=== PATIENT | female | born 1990 | race African-American/Black ===

== ENCOUNTER 2016-12-02 12:08 | Observation (INO) | payer SELFPAY ==
[~2016-12-02] VITALS: Ht 160 cm; Wt 65.9 kg
[2016-12-02 12:45] VITALS: BP 124/67
[2016-12-02 14:15] LABS: APPEARANCE,URINE CLOUDY (CLEAR); GLUCOSE, URINE (UA) NEGATIVE (NEGATIVE); KETONES,URINE 15 mg/dL (NEGATIVE); LEUKOCYTE ESTERASE ,URINE LARGE (NEGATIVE); OCCULT BLOOD,URINE NEGATIVE (NEGATIVE); PH,URINE 6.5 (5.0-8.0); PROTEIN,URINE POS 1+ (NEGATIVE)
[2016-12-02 14:29] LABS: SQUAMOUS EPITHELIAL CELL,UR Moderate /LPF (None Seen)
[2016-12-02] MEDS ORDERED: RINGERS SOLUTION,LACTATED 1,000 ML IV SCH (15:00)
[2016-12-02] MEDS ORDERED: RINGERS SOLUTION,LACTATED 1,000 ML IV ONE (15:00)
== END 2016-12-02 18:00 | disposition home or self-care (01) ==
LOC: EMS 12:10 → 4S 12:55
PROVIDERS: ADMIT Obstetrics & Gynecology; ATTEND Obstetrics & Gynecology
DX: O26.893 Other specified pregnancy related conditions, third trimester (principal); R10.2 Pelvic and perineal pain; O99.323 Drug use complicating pregnancy, third trimester; F12.90 Cannabis use, unspecified, uncomplicated; Z3A.34 34 weeks gestation of pregnancy
CPT/HCPCS: 59025; 76811; 80307 ×8; 81001; 87086; 96360; 99285; G0378; J7120; 96361

== ENCOUNTER 2016-12-10 20:56 | Inpatient (IN) | payer MEDICAID ==
[~2016-12-10] VITALS: Ht 165.1 cm; Wt 65.8 kg
[2016-12-10 20:48] VITALS: BP 146/78
[2016-12-10] MEDS ORDERED: RINGERS SOLUTION,LACTATED 1,000 ML IV SCH (20:57)
[2016-12-10] MEDS ORDERED: RINGERS SOLUTION,LACTATED 1,000 ML IV PRN (20:57)
[2016-12-10] MEDS ORDERED: OXYTOCIN 30 UNITS/LACT RINGERS 500 ML IV ONE (20:57)
[2016-12-10] MEDS ORDERED: METOCLOPRAMIDE HCL 5 MG/ML 2 ML VIAL IVP PRN (21:00)
[2016-12-10] MEDS ORDERED: CITRIC ACID/SODIUM CITRATE 30 ML SOLUTION UDCUP PO PRN (21:00)
[2016-12-10] MEDS ORDERED: FentaNYL CITRATE-PF 100 MCG/2 ML VIAL IVP PRN (21:00)
[2016-12-10] MEDS ORDERED: AMPICILLIN SODIUM 2 GM/NS 100 ML IV ONE (21:00)
[2016-12-10 21:51] LABS: BASOPHILS % (AUTO) 0.3 % (0.0-2.0); EOSINOPHILS % (AUTO) 0.4 % (1.0-6.0); HEMOGLOBIN 7.8 g/dL (12.0-16.0); LYMPHOCYTES # (AUTO) 1.9 K/uL (1.0-4.8); LYMPHOCYTES % (AUTO) 18.5 % (22.0-44.0); MEAN CORPUSCULAR HEMOGLOBIN 19.8 pg (26.0-34.0); MEAN CORPUSCULAR HGB CONC 29.9 G/dL (31.0-37.0); MEAN CORPUSCULAR VOLUME 66 fL (80-100); MONOCYTES # (AUTO) 0.6 K/uL (0.1-1.0); MONOCYTES % (AUTO) 5.9 % (2.0-9.0); NEUTROPHILS # (AUTO) 7.6 K/uL (1.8-7.7); NEUTROPHILS % (AUTO) 74.9 % (40.0-70.0); RED BLOOD CELL COUNT(AUTO) 3.92 MIL/uL (4.00-5.20); RED CELL DISTRIBUTION WIDTH 21.4 % (11.5-14.5); WHITE BLOOD COUNT (AUTO) 10.2 K/uL (4.5-11.0)
[2016-12-10 22:00] LABS: ANION GAP 12 mmol/L (8-16); CALCIUM, TOTAL 8.3 mg/dL (8.8-10.5); CARBON DIOXIDE 23 mmol/L (22-29); CHLORIDE 102 mmol/L (98-107); CREATININE 0.87 mg/dL (0.60-1.30); GLOMERULAR FILTR. RATE CALC > 60 mL/min (>60); POTASSIUM 3.1 mmol/L (3.5-5.1); SODIUM SERUM 137 mmol/L (136-145); UREA NITROGEN, BLOOD 9 mg/dL (7-18)
[2016-12-10 22:05] LABS: ALANINE AMINOTRANSFERASE 35 U/L (12-78); ALBUMIN 2.6 g/dL (3.4-5.0); ASPARTATE AMINOTRANSFERASE 39 U/L (15-37); BILIRUBIN,TOTAL 0.6 mg/dL (0.1-1.0); TOTAL PROTEIN, SERUM 6.7 g/dL (6.4-8.2)
[2016-12-10 22:19] LABS: RBC MORPHOLOGY COMMENT ABNORMAL RBC MORPH
[2016-12-10 22:36] LABS: RAPID PLASMA REAGIN NONREACTIVE (NONREACTIVE); RUBELLA SCREEN (IGG) IMMUNE (IMMUNE)
[2016-12-10] MEDS ORDERED: BENZOCAINE 20%/MENTHOL 56 GM SPRAY CANISTER TP PRN (23:30)
[2016-12-10] MEDS ORDERED: GLYCERIN/WITCH HAZEL LEAF 40 PADS JAR TP PRN (23:30)
[2016-12-10] MEDS ORDERED: LANOLIN 7 GM OINTMENT TP PRN (23:30)
[2016-12-11] MEDS: GuaiFENesin/D-METHORPHAN [SUGAR-FREE] 200-20MG/10 ML SYRUP UDCUP PO PRN ×4 (00:09→16:26)
[2016-12-11] MEDS ORDERED: AMPICILLIN SODIUM 1 GM/NS 50 ML IV SCH (01:00)
[2016-12-11] MEDS: IBUPROFEN 600 MG TABLET PO PRN ×2 (05:07→12:29)
[2016-12-11] MEDS ORDERED: OXYGEN THERAPY IH SCH (08:00)
[2016-12-11 08:40] LABS: BASOPHILS % (AUTO) 1.3 % (0.0-2.0); EOSINOPHILS % (AUTO) 0.4 % (1.0-6.0); HEMOGLOBIN 7.6 g/dL (12.0-16.0); LYMPHOCYTES # (AUTO) 1.6 K/uL (1.0-4.8); LYMPHOCYTES % (AUTO) 12.3 % (22.0-44.0); MEAN CORPUSCULAR HEMOGLOBIN 20.1 pg (26.0-34.0); MEAN CORPUSCULAR HGB CONC 30.6 G/dL (31.0-37.0); MEAN CORPUSCULAR VOLUME 66 fL (80-100); MONOCYTES # (AUTO) 0.6 K/uL (0.1-1.0); MONOCYTES % (AUTO) 4.7 % (2.0-9.0); NEUTROPHILS # (AUTO) 10.4 K/uL (1.8-7.7); NEUTROPHILS % (AUTO) 81.3 % (40.0-70.0); RED CELL DISTRIBUTION WIDTH 21.2 % (11.5-14.5); WHITE BLOOD COUNT (AUTO) 12.8 K/uL (4.5-11.0)
[2016-12-11] MEDS: MAGNESIUM HYDROXIDE SUSPENSION 30 ML UDCUP PO SCH ×2 (09:32→21:00)
[2016-12-11] MEDS: SENNA/DOCUSATE SODIUM 187-50 MG TABLET PO SCH ×2 (09:32→21:00)
[2016-12-11] MEDS ORDERED: SOD FERRIC GLUC COMPLX/SUCROSE 125 MG in SODIUM CHLORIDE 0.9% 100 ML IV ONE (21:00)
[2016-12-11] MEDS ORDERED: SODIUM CHLORIDE 0.9% 1,000 ML IV ONE (21:08)
[2016-12-12] MEDS: IBUPROFEN 600 MG TABLET PO PRN (15:48)
[2016-12-13] MEDS: SENNA/DOCUSATE SODIUM 187-50 MG TABLET PO SCH (08:13)
[2016-12-13] MEDS: MAGNESIUM HYDROXIDE SUSPENSION 30 ML UDCUP PO SCH (08:13)
[2016-12-13] MEDS: IBUPROFEN 600 MG TABLET PO PRN (08:14)
[2016-12-13] MEDS ORDERED: FERR-89 PO (11:40)
[2016-12-13] MEDS ORDERED: IBUP-2070 PO (11:40)
[2016-12-13] MEDS ORDERED: DSS100 PO (11:41)
== END 2016-12-13 15:50 | disposition home or self-care (01) | DRG 560 ==
LOC: 4S 20:56 → PREOBSVTOIN 01-02 21:12
PROVIDERS: ADMIT Obstetrics & Gynecology; ATTEND Obstetrics & Gynecology
PROC: 10D07Z6 Extraction of Products of Conception, Vacuum, Via Natural or Artificial Opening (ICD-10-PCS; principal; 2016-12-10)
PROC: 0UQMXZZ Repair Vulva, External Approach (ICD-10-PCS; 2016-12-10)
PROC: 0W8NXZZ Division of Female Perineum, External Approach (ICD-10-PCS; 2016-12-10)
DX: O60.14X0 Preterm labor third trimester with preterm delivery third trimester, not applicable or unspecified (principal); O77.0 Labor and delivery complicated by meconium in amniotic fluid; O71.82 Other specified trauma to perineum and vulva; O66.5 Attempted application of vacuum extractor and forceps; Z37.0 Single live birth; Z3A.35 35 weeks gestation of pregnancy
CPT/HCPCS: 71020; 80307; 80324; 80349; 86592; 86762; 86850; 86900; 86901; 87340; 88307; J2590; J2916; J7030; J7050; J7120

== ENCOUNTER 2017-01-26 21:20 | Emergency (ER) | payer MEDICAID, OTHER ==
[~2017-01-26] VITALS: Ht 167.6 cm; Wt 70.9 kg
[~2017-01-26 21:20] MED LIST: DSS100 PO; FERR-89 PO; IBUP-2070 PO
[2017-01-26] MEDS ORDERED: TraMADol HCL 50 MG TABLET PO ONE (22:15)
[2017-01-26 22:24] VITALS: BP 139/77
== END 2017-01-26 22:24 | disposition home or self-care (01) ==
LOC: EMS 21:23
DX: M54.5 Low back pain (principal); B86 Scabies; L29.9 Pruritus, unspecified; F17.210 Nicotine dependence, cigarettes, uncomplicated; F19.90 Other psychoactive substance use, unspecified, uncomplicated
CPT/HCPCS: 99283

== ENCOUNTER 2017-04-27 09:38 | Inpatient (IN) | payer MEDICAID, OTHER ==
[~2017-04-27] VITALS: Ht 160 cm; Wt 56.9 kg
[2017-04-27 10:23] LABS: BASOPHILS # (AUTO) 0.03 K/uL (0.00-0.20); BASOPHILS % (AUTO) 0.5 % (0.0-2.0); EOSINOPHILS # (AUTO) 0.09 K/uL (0.00-0.70); EOSINOPHILS % (AUTO) 1.57 % (1.0-6.0); HEMATOCRIT 33.3 % (36-46); HEMOGLOBIN 10.3 g/dL (12.0-16.0); LYMPHOCYTES # (AUTO) 1.8 K/uL (1.0-4.8); LYMPHOCYTES % (AUTO) 30.7 % (22.0-44.0); MEAN CORPUSCULAR HEMOGLOBIN 23.2 pg (26.0-34.0); MEAN CORPUSCULAR HGB CONC 30.9 G/dL (31.0-37.0); MEAN CORPUSCULAR VOLUME 75 fL (80-100); MONOCYTES # (AUTO) 0.5 K/uL (0.1-1.0); MONOCYTES % (AUTO) 8.6 % (2.0-9.0); NEUTROPHILS # (AUTO) 3.4 K/uL (1.8-7.7); NEUTROPHILS % (AUTO) 58.7 % (40.0-70.0); PLATELET COUNT (AUTO) 247 K/uL (150-450); RED BLOOD CELL COUNT(AUTO) 4.43 MIL/uL (4.00-5.20)
[2017-04-27 10:28] LABS: AMPHET/METH SCREEN,URINE POSITIVE (NEGATIVE); BARBITURATE SCREEN, URINE NEGATIVE (NEGATIVE); BENZODIAZEPINES SCREEN,URINE NEGATIVE (NEGATIVE); CANNABINOID SCREEN,URINE POSITIVE (NEGATIVE); COCAINE SCREEN,URINE NEGATIVE (NEGATIVE); METHADONE SCREEN, URINE NEGATIVE (NEGATIVE); OPIATE SCREEN,URINE NEGATIVE (NEGATIVE)
[2017-04-27 10:29] LABS: PHENCYCLIDINE SCREEN,URINE NEGATIVE (NEGATIVE)
[2017-04-27 10:32] LABS: ANION GAP 9 mmol/L (8-16); CALCIUM, TOTAL 9.1 mg/dL (8.8-10.5); CARBON DIOXIDE 28 mmol/L (22-29); CHLORIDE 104 mmol/L (98-107); CREATININE 1.06 mg/dL (0.60-1.30); GLOMERULAR FILTR. RATE CALC > 60 mL/min (>60); GLUCOSE,RANDOM 91 mg/dL (70-110); POTASSIUM 3.9 mmol/L (3.5-5.1); SODIUM SERUM 141 mmol/L (136-145); UREA NITROGEN, BLOOD 10 mg/dL (7-18)
[2017-04-27 10:38] LABS: ALANINE AMINOTRANSFERASE 30 U/L (12-78); ALBUMIN 3.9 g/dL (3.4-5.0); ALKALINE PHOSPHATASE 79 U/L (46-116); ASPARTATE AMINOTRANSFERASE 40 U/L (15-37); BILIRUBIN,TOTAL 0.7 mg/dL (0.1-1.0)
[2017-04-27] MEDS ORDERED: HALOPERIDOL 5 MG TABLET PO PRN (12:00)
[2017-04-27] MEDS ORDERED: LORazepam 2 MG TABLET PO PRN (12:00)
[2017-04-27] MEDS ORDERED: ZOLPIDEM TARTRATE 10 MG TABLET PO PRN (12:00)
[2017-04-27 12:27] LABS: APPEARANCE,URINE CLOUDY (CLEAR); BILIRUBIN,URINE NEGATIVE (NEGATIVE); GLUCOSE, URINE (UA) NEGATIVE (NEGATIVE); KETONES,URINE NEGATIVE (NEGATIVE); LEUKOCYTE ESTERASE ,URINE MODERATE (NEGATIVE); NITRATE,URINE NEGATIVE (NEGATIVE); OCCULT BLOOD,URINE LARGE (NEGATIVE); PROTEIN,URINE TRACE (NEGATIVE); UROBILINOGEN,URINE 0.2 mg/dL (<=1.0)
[2017-04-27 12:44] LABS: CHOL/HDL RATIO 2.1 (3.9-5.7); CHOLESTEROL 173 mg/dL (131-200); HDL CHOLESTEROL 82 mg/dL (40-60); LDL CHOL (CALC.) 85 mg/dL (0-130); TRIGLYCERIDES 32 mg/dL (15-150)
[2017-04-27 12:51] LABS: BACTERIA,URINE Few /HPF (None Seen); RBC,URINE 0-2 /HPF (0-2)
[2017-04-27 12:52] LABS: SQUAMOUS EPITHELIAL CELL,UR Many /LPF (None Seen)
[2017-04-27 13:05] LABS: FREE T4 (FREE THYROXINE) 1.03 ng/dL (0.76-1.46); THYROID STIMULATING HORMONE 1.19 uIU/mL (0.36-3.74)
[2017-04-27 13:54] VITALS: BP 121/81
[2017-04-27] MEDS ORDERED: INFLUENZA VIRUS VACCINE QVS 2017-18 (3YR+)/PF 60 MCG/0.5 ML SYRINGE IM ONE (14:00)
[2017-04-27] MEDS ORDERED: IBUPROFEN 400 MG TABLET PO PRN (16:45)
[2017-04-27] MEDS ORDERED: ACETAMINOPHEN 325 MG TABLET PO PRN (16:45)
[2017-04-27] MEDS: RisperiDONE 1 MG TABLET PO SCH (17:36)
[2017-04-27 17:53] VITALS: BP 118/79
[2017-04-27] MEDS ORDERED: CIPROFLOXACIN HCL 250 MG TABLET PO SCH (21:00)
[2017-04-28 08:11] LABS: CHOL/HDL RATIO 2.1 (3.9-5.7)
[2017-04-28] MEDS: LEVOFLOXACIN 500 MG TABLET PO SCH (09:38)
[2017-04-28] MEDS: RisperiDONE 1 MG TABLET PO SCH ×2 (09:38→17:24)
[2017-04-28] MEDS: NICOTINE 7 MG/24 HOUR PATCH TD SCH (09:39)
[2017-04-28 10:22] VITALS: BP 108/62
[2017-04-28 16:30] VITALS: BP 122/64
[2017-04-29 08:54] VITALS: BP 101/62
[2017-04-29] MEDS: LEVOFLOXACIN 500 MG TABLET PO SCH ×2 (09:00→13:01)
[2017-04-29] MEDS: NICOTINE 7 MG/24 HOUR PATCH TD SCH (09:00)
[2017-04-29] MEDS: RisperiDONE 1 MG TABLET PO SCH ×2 (09:00→13:00)
[2017-04-29] MEDS ORDERED: RisperiDONE 3 MG TABLET PO ONE (14:45)
[2017-04-29 16:00] VITALS: BP 112/60
[2017-04-29] MEDS: RisperiDONE 3 MG TABLET PO SCH (20:23)
[2017-04-30] MEDS: NICOTINE 7 MG/24 HOUR PATCH TD SCH (09:00)
[2017-04-30] MEDS: RisperiDONE 3 MG TABLET PO SCH ×2 (09:32→16:56)
[2017-04-30] MEDS: LEVOFLOXACIN 500 MG TABLET PO SCH (09:32)
[2017-05-01] MEDS: NICOTINE 7 MG/24 HOUR PATCH TD SCH (09:00)
[2017-05-01] MEDS: RisperiDONE 3 MG TABLET PO SCH (09:36)
[2017-05-01] MEDS ORDERED: RISP3 PO (11:43)
[2017-05-01 12:30] VITALS: BP 121/75
== END 2017-05-01 13:20 | disposition home or self-care (01) | DRG 750 ==
LOC: EMS 09:38 → 3EI 13:19
PROVIDERS: ADMIT Psychiatry & Neurology Child & Adolescent Psychiatry; ATTEND Psychiatry & Neurology Child & Adolescent Psychiatry
DX: F20.0 Paranoid schizophrenia (principal); N39.0 Urinary tract infection, site not specified; F32.9 Major depressive disorder, single episode, unspecified; D50.9 Iron deficiency anemia, unspecified; F17.220 Nicotine dependence, chewing tobacco, uncomplicated; F12.90 Cannabis use, unspecified, uncomplicated; F15.90 Other stimulant use, unspecified, uncomplicated; R45.87 Impulsiveness; Z91.5 Personal history of self-harm; Z28.21 Immunization not carried out because of patient refusal
CPT/HCPCS: 83036; 84439; 84443; 87086; 87147; 99285; G0480

== ENCOUNTER 2017-05-04 21:25 | Inpatient (IN) | payer MEDICAID, OTHER ==
[~2017-05-04] VITALS: Ht 157.5 cm; Wt 56.2 kg
[~2017-05-04 21:25] MED LIST changes: -DSS100 PO; -FERR-89 PO; -IBUP-2070 PO; +RISP3 PO
[2017-05-04] MEDS ORDERED: LORazepam 2 MG/ML VIAL IM ONE (22:30)
[2017-05-04] MEDS ORDERED: HALOPERIDOL LACTATE 5 MG/ML VIAL IM ONE (22:30)
[2017-05-04] MEDS ORDERED: DiphenhydrAMINE HCL 50 MG/ML VIAL IM ONE (22:30)
[2017-05-04] MEDS ORDERED: ZOLPIDEM TARTRATE 10 MG TABLET PO PRN (22:45)
[2017-05-04] MEDS ORDERED: ACETAMINOPHEN 325 MG TABLET PO PRN (22:45)
[2017-05-04] MEDS ORDERED: MAG HYDROX/AL HYDROX/SIMETH ES 30 ML SUSPENSION UDCUP PO PRN (22:45)
[2017-05-04] MEDS ORDERED: LORazepam 2 MG TABLET PO PRN (22:45)
[2017-05-04] MEDS ORDERED: HALOPERIDOL 5 MG TABLET PO PRN (22:45)
[2017-05-04 23:43] LABS: BASOPHILS # (AUTO) 0.02 K/uL (0.00-0.20); BASOPHILS % (AUTO) 0.3 % (0.0-2.0); EOSINOPHILS # (AUTO) 0.13 K/uL (0.00-0.70); EOSINOPHILS % (AUTO) 1.95 % (1.0-6.0); HEMATOCRIT 30.8 % (36-46); HEMOGLOBIN 9.6 g/dL (12.0-16.0); LYMPHOCYTES # (AUTO) 1.6 K/uL (1.0-4.8); LYMPHOCYTES % (AUTO) 23.5 % (22.0-44.0); MEAN CORPUSCULAR HEMOGLOBIN 23.4 pg (26.0-34.0); MEAN CORPUSCULAR HGB CONC 31.3 G/dL (31.0-37.0); MEAN CORPUSCULAR VOLUME 75 fL (80-100); MONOCYTES # (AUTO) 0.5 K/uL (0.1-1.0); MONOCYTES % (AUTO) 7.5 % (2.0-9.0); NEUTROPHILS # (AUTO) 4.4 K/uL (1.8-7.7); NEUTROPHILS % (AUTO) 66.8 % (40.0-70.0); PLATELET COUNT (AUTO) 249 K/uL (150-450); RED BLOOD CELL COUNT(AUTO) 4.11 MIL/uL (4.00-5.20); RED CELL DISTRIBUTION WIDTH 19.4 % (11.5-14.5); WHITE BLOOD COUNT (AUTO) 6.6 K/uL (4.5-11.0)
[2017-05-04 23:54] LABS: ANION GAP 6 mmol/L (8-16); CALCIUM, TOTAL 8.7 mg/dL (8.8-10.5); CARBON DIOXIDE 26 mmol/L (22-29); CHLORIDE 105 mmol/L (98-107); GLOMERULAR FILTR. RATE CALC > 60 mL/min (>60); POTASSIUM 3.6 mmol/L (3.5-5.1); SODIUM SERUM 137 mmol/L (136-145); UREA NITROGEN, BLOOD 15 mg/dL (7-18)
[2017-05-05] LABS: ALANINE AMINOTRANSFERASE 31 U/L (12-78); ALBUMIN 3.3 g/dL (3.4-5.0); ASPARTATE AMINOTRANSFERASE 44 U/L (15-37); BILIRUBIN,TOTAL 0.7 mg/dL (0.1-1.0); TOTAL PROTEIN, SERUM 6.7 g/dL (6.4-8.2)
[2017-05-05 00:16] LABS: RBC MORPHOLOGY COMMENT ABNORMAL RBC MORPH
[2017-05-05 01:26] VITALS: BP 110/68
[2017-05-05] MEDS ORDERED: INFLUENZA VIRUS VACCINE QVS 2017-18 (3YR+)/PF 60 MCG/0.5 ML SYRINGE IM ONE (01:30)
[2017-05-05] MEDS ORDERED: MAG HYDROX/AL HYDROX/SIMETH ES 30 ML SUSPENSION UDCUP PO PRN (07:00)
[2017-05-05] MEDS ORDERED: MAGNESIUM HYDROXIDE SUSPENSION 30 ML UDCUP PO PRN (07:00)
[2017-05-05] MEDS ORDERED: PETROLATUM,WHITE 71 GM JELLY TP PRN (07:00)
[2017-05-05] MEDS ORDERED: IBUPROFEN 600 MG TABLET PO PRN (07:00)
[2017-05-05] MEDS ORDERED: BACITRACIN 28.4 GM OINTMENT TP PRN (07:00)
[2017-05-05] MEDS ORDERED: CloNIDine HCL 0.1 MG TABLET PO PRN (07:00)
[2017-05-05] MEDS ORDERED: BENZOCAINE/MENTHOL LOZENGE MM PRN (07:00)
[2017-05-05] MEDS ORDERED: ONDANSETRON HCL 4 MG TABLET PO PRN (07:00)
[2017-05-05] MEDS ORDERED: LOPERAMIDE HCL 2 MG CAPSULE PO PRN (07:00)
[2017-05-05] MEDS ORDERED: ALBUTEROL SULFATE HFA 90 MCG/PUFF 8 GM INHALER IH PRN (07:00)
[2017-05-05] MEDS: MULTIVITAMINS WITH MINERALS, THERAPEUTIC TABLET PO SCH (09:00)
[2017-05-05 09:03] VITALS: BP 122/65
[2017-05-05 16:02] VITALS: BP 101/63
[2017-05-06 01:13] VITALS: BP 121/74
[2017-05-06 08:14] LABS: HEMOGLOBIN A1C 5.6 % (4.5-6.2)
[2017-05-06 09:05] LABS: CHOL/HDL RATIO 2.4 (3.9-5.7); THYROID STIMULATING HORMONE 0.3 uIU/mL (0.36-3.74)
[2017-05-06] MEDS: MULTIVITAMINS WITH MINERALS, THERAPEUTIC TABLET PO SCH (09:07)
[2017-05-06] MEDS: FLUoxetine HCL 20 MG CAPSULE PO SCH (09:07)
[2017-05-06] MEDS: ARIPiprazole 10 MG TABLET PO SCH (09:07)
[2017-05-06 16:08] VITALS: BP 111/60
[2017-05-07 04:36] VITALS: BP 114/63
[2017-05-07] MEDS: MULTIVITAMINS WITH MINERALS, THERAPEUTIC TABLET PO SCH (08:15)
[2017-05-07] MEDS: ARIPiprazole 10 MG TABLET PO SCH (08:15)
[2017-05-07] MEDS: FLUoxetine HCL 20 MG CAPSULE PO SCH (08:15)
[2017-05-07 08:23] VITALS: BP 118/79
[2017-05-07 16:00] VITALS: BP 113/63
[2017-05-08 05:50] VITALS: BP 117/62
[2017-05-08 08:02] VITALS: BP 112/76
[2017-05-08] MEDS: ARIPiprazole 10 MG TABLET PO SCH (08:33)
[2017-05-08] MEDS: MULTIVITAMINS WITH MINERALS, THERAPEUTIC TABLET PO SCH (08:33)
[2017-05-08] MEDS: FLUoxetine HCL 20 MG CAPSULE PO SCH (08:33)
[2017-05-08 16:08] VITALS: BP_SYST 115; BP_SYST 128; BP_DIAS 62; BP_DIAS 88
[2017-05-08] MEDS: FERROUS SULFATE 325 MG EC TABLET PO SCH (16:16)
[2017-05-09] MEDS: FERROUS SULFATE 325 MG EC TABLET PO SCH ×2 (06:24→17:14)
[2017-05-09 06:26] VITALS: BP 110/76
[2017-05-09 08:00] VITALS: BP 115/68
[2017-05-09] MEDS: MULTIVITAMINS WITH MINERALS, THERAPEUTIC TABLET PO SCH (08:44)
[2017-05-09] MEDS: FLUoxetine HCL 20 MG CAPSULE PO SCH (08:45)
[2017-05-09] MEDS: ARIPiprazole 10 MG TABLET PO SCH (08:45)
[2017-05-09 16:01] VITALS: BP 107/63
[2017-05-10] MEDS: FERROUS SULFATE 325 MG EC TABLET PO SCH (07:05)
[2017-05-10] MEDS: ARIPiprazole 10 MG TABLET PO SCH (08:10)
[2017-05-10] MEDS: FLUoxetine HCL 20 MG CAPSULE PO SCH (08:10)
[2017-05-10] MEDS: MULTIVITAMINS WITH MINERALS, THERAPEUTIC TABLET PO SCH (08:10)
[2017-05-10 08:34] VITALS: BP 137/76
[2017-05-10] MEDS ORDERED: FLUO-191 PO (09:32)
[2017-05-10] MEDS ORDERED: ARIP10TA8 PO (09:32)
== END 2017-05-10 11:15 | disposition home or self-care (01) | DRG 750 ==
LOC: EMS 21:27 → B3A 23:57 → EMS 05-05 00:20 → B3A 05-05 20:47
PROVIDERS: ADMIT Psychiatry & Neurology Psychiatry; ATTEND Psychiatry & Neurology Psychiatry
DX: F25.1 Schizoaffective disorder, depressive type (principal); R45.851 Suicidal ideations; E83.51 Hypocalcemia; D50.9 Iron deficiency anemia, unspecified; F15.10 Other stimulant abuse, uncomplicated; F41.9 Anxiety disorder, unspecified; F12.10 Cannabis abuse, uncomplicated; G47.00 Insomnia, unspecified; Z79.899 Other long term (current) drug therapy
CPT/HCPCS: 82306; 83036; 83540; 83550; 84439; 84443; 87081; 96372; 99285; G0480; J1200; J1630; J2060

== ENCOUNTER 2017-07-16 16:15 | Emergency (ER) | payer MEDICAID, OTHER ==
[~2017-07-16] VITALS: Ht 162.6 cm; Wt 56.0 kg
[~2017-07-16 16:15] MED LIST changes: +ARIP10TA8 PO; +FLUO-191 PO; -RISP3 PO
[2017-07-16] MEDS ORDERED: RISP.5 PO (16:24)
[2017-07-16 16:56] LABS: EOSINOPHILS # (AUTO) 0.03 K/uL (0.00-0.70); EOSINOPHILS % (AUTO) 0.31 % (1.0-6.0); HEMATOCRIT 33.7 % (36-46); HEMOGLOBIN 10.4 g/dL (12.0-16.0); LYMPHOCYTES # (AUTO) 1.3 K/uL (1.0-4.8); LYMPHOCYTES % (AUTO) 14.8 % (22.0-44.0); MEAN CORPUSCULAR HEMOGLOBIN 23.5 pg (26.0-34.0); MEAN CORPUSCULAR HGB CONC 30.7 G/dL (31.0-37.0); MEAN CORPUSCULAR VOLUME 76 fL (80-100); MONOCYTES # (AUTO) 0.6 K/uL (0.1-1.0); MONOCYTES % (AUTO) 6.4 % (2.0-9.0); NEUTROPHILS # (AUTO) 6.7 K/uL (1.8-7.7); NEUTROPHILS % (AUTO) 78.5 % (40.0-70.0); PLATELET COUNT (AUTO) 370 K/uL (150-450); RED BLOOD CELL COUNT(AUTO) 4.41 MIL/uL (4.00-5.20); RED CELL DISTRIBUTION WIDTH 18.7 % (11.5-14.5)
[2017-07-16 16:56] LABS: AMPHET/METH SCREEN,URINE POSITIVE (NEGATIVE); BARBITURATE SCREEN, URINE NEGATIVE (NEGATIVE); BENZODIAZEPINES SCREEN,URINE NEGATIVE (NEGATIVE); CANNABINOID SCREEN,URINE POSITIVE (NEGATIVE); COCAINE SCREEN,URINE NEGATIVE (NEGATIVE); METHADONE SCREEN, URINE NEGATIVE (NEGATIVE); OPIATE SCREEN,URINE NEGATIVE (NEGATIVE)
[2017-07-16 16:57] LABS: PHENCYCLIDINE SCREEN,URINE NEGATIVE (NEGATIVE)
[2017-07-16 17:12] LABS: PLATELET MORPHOLOGY COMMENT NORMAL
[2017-07-16 17:18] LABS: ANION GAP 11 mmol/L (8-16); CALCIUM, TOTAL 9.3 mg/dL (8.8-10.5); CARBON DIOXIDE 25 mmol/L (22-29); CHLORIDE 103 mmol/L (98-107); GLOMERULAR FILTR. RATE CALC 60 mL/min (>60); GLUCOSE,RANDOM 104 mg/dL (70-110); POTASSIUM 4.1 mmol/L (3.5-5.1); SODIUM SERUM 139 mmol/L (136-145); UREA NITROGEN, BLOOD 17 mg/dL (7-18)
[2017-07-16 17:22] LABS: ALANINE AMINOTRANSFERASE 29 U/L (12-78); ALBUMIN 3.6 g/dL (3.4-5.0); ALKALINE PHOSPHATASE 88 U/L (46-116); ASPARTATE AMINOTRANSFERASE 36 U/L (15-37); BILIRUBIN,TOTAL 0.4 mg/dL (0.1-1.0)
[2017-07-16 17:26] VITALS: BP 126/78
== END 2017-07-16 18:07 | disposition home or self-care (01) ==
LOC: EMS 16:17
DX: F15.90 Other stimulant use, unspecified, uncomplicated (principal); F12.90 Cannabis use, unspecified, uncomplicated; F20.9 Schizophrenia, unspecified; F31.9 Bipolar disorder, unspecified; Z87.891 Personal history of nicotine dependence
CPT/HCPCS: 36415; 80053; 80307; 84703; 85025; 99285; G0480

== ENCOUNTER 2023-04-07 22:44 | Emergency (ER) | payer OTHER ==
[~2023-04-07 22:44] MED LIST changes: +ARIP10TA38 PO; -ARIP10TA8 PO; +FLUO-177 PO; -FLUO-191 PO; +RISP0.5T39 PO
[2023-04-08] MEDS ORDERED: DOXY-354 PO (07:31)
== END 2023-04-07 23:40 | disposition left against medical advice (07) ==
LOC: EMS 22:46
DX: Z53.21 Procedure and treatment not carried out due to patient leaving prior to being seen by health care provider (principal)

== ENCOUNTER 2023-04-08 06:07 | Emergency (ER) | payer OTHER ==
[~2023-04-08] VITALS: Ht 162.6 cm; Wt 64.0 kg
[2023-04-08 06:14] VITALS: BP 119/79; PULSE 103; RESP 16; TEMP 98.4
[2023-04-08] MEDS ORDERED: AZITHROMYCIN 500 MG TABLET PO ONE (07:30)
[2023-04-08] MEDS ORDERED: CefTRIAXone SODIUM 1 GM/VIAL IM ONE (07:30)
[2023-04-08] MEDS ORDERED: LIDOCAINE/PF 1% 2 ML VIAL IM ONE ×2 (07:30)
[2023-04-08] MEDS ORDERED: DOXY-354 PO (07:31)
== END 2023-04-08 08:04 | disposition home or self-care (01) ==
LOC: EMS 06:08
DX: F25.9 Schizoaffective disorder, unspecified (principal); F31.9 Bipolar disorder, unspecified; F12.90 Cannabis use, unspecified, uncomplicated; F15.90 Other stimulant use, unspecified, uncomplicated; Z20.2 Contact with and (suspected) exposure to infections with a predominantly sexual mode of transmission; Z97.5 Presence of (intrauterine) contraceptive device; Z87.891 Personal history of nicotine dependence
CPT/HCPCS: 99283; 96372; J0696; J3490; Q9967